=== PATIENT | male | born 1980 | race Caucasian/White ===

== ENCOUNTER 2023-02-12 23:48 | Emergency (ER) | payer SELFPAY ==
[~2023-02-12] VITALS: Ht 165.1 cm; Wt 76.0 kg
[2023-02-12 23:55] VITALS: BP 165/102
[2023-02-13 00:37] LABS: BASOPHILS % 0.7 % (0.0-2.0); HEMATOCRIT. 41.7 % (42.0-52.0); HEMOGLOBIN. 14.7 g/dL (14.0-18.0); LYMPHOCYTES % 11.7 % (20.0-50.0); MEAN CORPUSCULAR HEMOGLOBIN 31.7 pg (28.0-32.0); MEAN PLATELET VOLUME 9.3 fl (7.4-10.4); MONOCYTES % 11.3 % (2.0-8.0); NEUTROPHILS % 68.3 % (40.0-76.0); PLATELET 249 x1000/uL (130-400); RED BLOOD CELL COUNT 4.63 mill/uL (4.7-6.1); RED CELL DISTRIBUTION WIDTH 12.9 % (11.6-14.6)
[2023-02-13 00:45] LABS: CHLORIDE 108 mEq/L (98-107)
[2023-02-13 00:56] LABS: ETHANOL BLOOD < 10 mg/dL
[2023-02-13 01:35] LABS: INR 0.9; PROTHROMBIN TIME 10.2 sec (9.6-11.0)
== END 2023-02-13 01:02 | disposition left against medical advice (07) ==
LOC: ER 23:48
DX: Z53.21 Procedure and treatment not carried out due to patient leaving prior to being seen by health care provider (principal); I49.9 Cardiac arrhythmia, unspecified
CPT/HCPCS: 36415; 80053; 80320; 82140; 83605; 84484; 85025; 93005; 99281; G0480